=== PATIENT | female | born 1995 | race Caucasian/White ===

== ENCOUNTER 2024-05-17 20:54 | Emergency (ER) | payer MEDICAID ==
[~2024-05-17] VITALS: Ht 160 cm; Wt 98.2 kg
[2024-05-17 21:22] LABS: BASOPHILS % (AUTO) 0.4 % (0-1); EOSINOPHILS # (AUTO) 0.1 X10'3 (0-0.9); EOSINOPHILS % (AUTO) 0.9 % (0-6); HEMATOCRIT 37.6 % (35.0-45.0); HEMOGLOBIN 12.9 g/dl (12.0-16.0); LYMPHOCYTES # (AUTO) 1.7 X10'3 (1.1-4.8); LYMPHOCYTES % (AUTO) 21.5 % (21-51); MEAN CORPUSCULAR HEMOGLOBIN 29.3 PG (27.0-31.0); MEAN CORPUSCULAR HGB CONC 34.2 g/dL (33.0-36.5); MEAN CORPUSCULAR VOLUME 85.9 FL (78-98); MEAN PLATELET VOLUME 8.8 FL (7.4-10.4); MONOCYTES # (AUTO) 0.4 X10'3 (0-0.9); NEUTROPHILS # (AUTO) 5.6 X10'3 (1.8-7.7); NEUTROPHILS % (AUTO) 72.2 % (42-75); PLATELET COUNT 235 X10'3 (140-440); RED BLOOD COUNT 4.38 X10'6 (4.20-5.60); RED CELL DISTRIBUTION WIDTH 14.8 % (11.5-14.5); WHITE BLOOD COUNT 7.7 X10'3 (4.5-11.0)
[2024-05-17 21:28] LABS: ALANINE AMINOTRANSFERASE 20 U/L (12-78); ALBUMIN 4.1 G/DL (3.4-5.0); ALBUMIN/GLOBULIN RATIO 1.2 (1.1-1.5); ALKALINE PHOSPHATASE 59 IU/L (46-116); ANION GAP 13 (8-16); ASPARTATE AMINO TRANSFERASE 17 U/L (10-37); BILIRUBIN,TOTAL 0.6 MG/DL (0.1-1.0); BLOOD UREA NITROGEN 17 MG/DL (7-18); BUN/CREATININE RATIO 21.3 (10.0-20.0); CALCIUM 8.6 MG/DL (8.5-10.1); CHLORIDE 104 MMOL/L (99-107); GLUCOSE 94 MG/DL (70-104); POTASSIUM 3.7 MMOL/L (3.5-5.1); SODIUM 139 MMOL/L (135-145); TOTAL CARBON DIOXIDE 22.4 MMOL/L (24-32); TOTAL PROTEIN 7.5 G/DL (6.4-8.2); eCRCL 87 ML/MIN; eGFR 85 ML/MIN
[2024-05-17 21:35] LABS: PRO BRAIN NATRIURETIC PEPTIDE 91 PG/ML (0-125)
[2024-05-17] MEDS: magnesium sulf-water 2g/50mL 50 ML IV ONE (21:36)
[2024-05-17] MEDS: normal saline 1000ml 1,000 ML IV ONE (21:37)
[2024-05-17 22:40] VITALS: BP 147/85
[2024-05-17 23:02] VITALS: PULSE 72; RESP 11; TEMP 98.8; O2SAT 99
== END 2024-05-17 23:15 | disposition home or self-care (01) ==
LOC: ER 20:56
DX: R07.89 Other chest pain (principal); E86.0 Dehydration
CPT/HCPCS: 36415; 71045; 80053; 82948; 83880; 84484; 85025; 93005; 96365; 96366; 99285; J7030

== ENCOUNTER 2024-08-04 09:36 | Emergency (ER) | payer MEDICAID ==
[~2024-08-04] VITALS: Ht 160 cm; Wt 92.5 kg
[2024-08-04 09:53] VITALS: TEMP 97.8
[2024-08-04 11:16] VITALS: BP 112/75; PULSE 65; RESP 14; O2SAT 99
[2024-08-04] MEDS ORDERED: ONDA-243 PO (11:16)
== END 2024-08-04 11:26 | disposition home or self-care (01) ==
LOC: ER 09:36
DX: R00.2 Palpitations (principal); Z88.5 Allergy status to narcotic agent
CPT/HCPCS: 93005; 99283

== ENCOUNTER 2025-06-20 17:14 | Emergency (ER) | payer MEDICAID ==
[~2025-06-20] VITALS: Ht 157.5 cm; Wt 81.2 kg
[~2025-06-20 17:14] MED LIST: ONDA-243 PO
[2025-06-20 17:28] VITALS: BP 140/92; PULSE 80; RESP 18; O2SAT 99
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
[2025-06-20] MEDS ORDERED: IBUP-1984 PO (20:21)
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
[2025-06-20] MEDS: ibuprofen tablet 400 MG TABLET PO ONE (20:38)
[2025-06-20 20:42] VITALS: TEMP 98.1
== END 2025-06-20 20:43 | disposition home or self-care (01) ==
LOC: ER 17:15
DX: M54.2 Cervicalgia (principal); Z88.5 Allergy status to narcotic agent; Z79.899 Other long term (current) drug therapy; V43.52XA Car driver injured in collision with other type car in traffic accident, initial encounter; Y93.89 Activity, other specified; Y92.89 Other specified places as the place of occurrence of the external cause; Y99.8 Other external cause status
CPT/HCPCS: 72040; 99283